=== PATIENT | female | born 1965 | race Caucasian/White ===

== ENCOUNTER 2016-05-02 19:39 | Emergency (ER) | payer OTHER ==
[~2016-05-02] VITALS: Ht 165.1 cm; Wt 71.1 kg
[~2016-05-02 19:39] MED LIST: IBUP-1105 PO; INTE0.3I2 SC; ONDA4TAB10 SL
[2016-05-02 19:47] VITALS: TEMP 36.7; Ht 165.1 cm; Wt 71.1 kg
[2016-05-02] MEDS ORDERED: HYDROmorphone INJ 1 MG/ML SYR IM STA (20:02)
[2016-05-02] MEDS ORDERED: ONDANSETRON 4MG OD TAB PO STA (20:02)
[2016-05-02] MEDS ORDERED: OXYC-609 PO (20:31)
--- NOTE | 2016-05-02 20:40 | EMERGENCY ROOM VISIT NOTE ---
ED Visit Note First contact with patient: 19:52 CHIEF COMPLAINT: Right knee pain HISTORY OF PRESENT ILLNESS: Patient is a 51-year-old white female who presents emergency department for evaluation of right knee pain. She is postop day #4 status post knee arthroscopy, debridement and lateral release performed by Dr. Child at [facility]. Patient states that she was doing well until today when her dog ran into her knee. She was wearing a knee immobilizer at that time. She complains of pain and swelling in the knee that she is unable to get controlled with her oral medications at home. She is on oxycodone chronically for chronic pain. She takes 15 mg every 4 hours for her chronic pain and was given additional oxycodone 5 mg tablets to take for breakthrough pain however only used her scheduled oxycodone 15 mg every 4 hours today. She states that she took an additional 5 mg about 4 hours ago. She iced and elevated the knee as well. She is using crutches. She rates her pain a 10/10. She states that it is radiating down her leg. REVIEW OF SYSTEMS: Review of systems as per HPI. All other systems reviewed were negative. At least 6 systems reviewed. PMH: Electronic medical records are reviewed and summarized as above/below. See Problem List. SOCIAL HISTORY: Patient lives at home. Former smoker. PHYSICAL EXAM: Vital Signs: Reviewed Nurse's notes. MENTAL STATUS: Alert, oriented, and cooperative. KNEE: Examination of the right knee show expected joint effusion and slight ecchymosis. Surgical incisions are well approximated with sutures, no drainage or discharge is present. The knee is slightly warm although not overly hot to the touch. She can extend fully, flexes roughly 20 before she has pain. Calves are soft and nontender. Distal pulses are easily palpable. EMERGENCY DEPARTMENT COURSE: The patient was seen and evaluated as above. Her old records are reviewed. She is on a No Narcotic Prescription policy through the emergency department as she is on chronic narcotics from pain management. X -rays of the right knee were obtained. Joint effusion was noted. No evidence for acute bony abnormality. She was given Zofran 4 mg ODT and Dilaudid 1 mg IM. She was advised that she would need to increase the amount of oxycodone that she is taking to cover for her postoperative knee pain. Continue all of her other postoperative instructions according to her surgeon. Patient was discharged home with her driving. 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 (2) Hypertension Status: Chronic (3) Multiple sclerosis Status: Chronic Surgical Problems: (1) History of cholecystectomy Status: Resolved (2) S/P partial hysterectomy Status: Resolved Current/Historical Medications Scheduled Estrogens, Conjugated (Premarin), 0.45 MG PO DAILY Interferon Beta-1B (Betaseron), 0.3 MG SC Q2D Lorazepam (Ativan), 1 MG PO HS Oxycodone HCl (Oxycodone HCl), 5 MG PO Q4H Oxycodone Hcl (Oxycodone Hcl), 15 MG PO QID Scheduled PRN Ibuprofen (Ibuprofen), 800 MG PO Q4H PRN for Headache or Pain Allergies Coded Allergies: Sulfa Antibiotics (Verified Allergy, Severe, upset stomach and itching, ) Tramadol (Verified Allergy, Severe, hives, 05/02/16) Gabapentin (Verified Allergy, Intermediate, UNKNOWN, 05/02/16) Hydrocodone (Verified Allergy, Intermediate, vomiting and rash, 05/02/16) Ketorolac Tromethamine (Verified Allergy, Intermediate, rash, vomiting, ) Aspirin (Verified Allergy, Unknown, 05/02/16) Baclofen (Unverified Allergy, Unknown, unknown, 05/02/16) Clonidine (Verified Allergy, Unknown, RASH,TACHYCARDIA, 05/02/16) Cyclobenzaprine (Unverified Allergy, Unknown, HIVES, 05/02/16) Diclofenac (Verified Allergy, Unknown, 05/02/16) Doxycycline (Verified Allergy, Unknown, ITCH,N/V, 05/02/16) Penicillamine (Verified Allergy, Unknown, RASH, 05/02/16) Pregabalin (Verified Allergy, Unknown, HIVES, 05/02/16) Sulfa Drugs (Verified Allergy, Unknown, HIVES, 05/02/16) Penicillins (Verified Adverse Reaction, Intermediate, N/V, 05/02/16) Prednisone (Verified Adverse Reaction, Unknown, tachycardia, 05/02/16) Vital Signs Date Time Temp Pulse Resp B/P Pulse Ox O2 Delivery O2 Flow Rate FiO2 05/02/16 19:47 36.7 103 18 159/116 96 Room Air Medications Administered Medications (Trade) Dose Ordered Sig/Ran Route Start Time Stop Time Status Last Admin Dose Admin Hydromorphone HCl (Dilaudid Inj) 1 mg NOW STAT IM 05/02/16 20:02 05/02/16 20:03 DC 05/02/16 20:15 1 MG Ondansetron HCl (Zofran Odt) 4 mg NOW STAT PO 05/02/16 20:02 05/02/16 20:03 DC 05/02/16 20:15 4 MG Departure Information Impression Primary Impression: Right knee pain Additional Impression: Post-operative pain Referrals Gildardo Olmos M.D. (PCP) Patient Instructions My [facility] Additional Instructions DO NOT drive, drink alcohol, operate machinery, or perform dangerous activities today. You were given medications in the ER that can affect your ability to safely function or operate a vehicle. Use your oxycodone as prescribed for pain. Follow all of your other post-operative instructions according to Dr. Child. Follow up with orthopedics as your have scheduled. Continue physical therapy. Problem Qualifiers Primary Impression: Right knee pain Chronicity: acute Qualified Codes: M25.561 - Pain in right knee
--- NOTE | 2016-05-02 20:42 | DIAGNOSTIC IMAGING REPORT ---
RIGHT KNEE 1 OR 2 VIEWS ROUTINE CLINICAL HISTORY: Right knee pain following injury. Recent scope. COMPARISON: Right knee radiographs December 17, 2015. FINDINGS: Alignment of the right knee is anatomic. There is no acute fracture or suspicious lesion. There is a small amount of soft tissue gas medial to the right knee. There is no definite joint effusion. Joint spaces are preserved. There may be mild irregularity of the patella which is chronic. IMPRESSION: 1. No osseous abnormality of the right knee. 2. Small amount of soft tissue gas which could be correlated with recent surgical history. Electronically signed by: Emanuel Morgan M.D. 05/02/2016 8:40 PM Dictated Date/Time: 05/02/2016 8:38 PM
[2016-05-02 20:51] VITALS: BP 131/100; PULSE 78; O2SAT 97
[2016-05-18] MEDS ORDERED: PRM/45 PO (07:03)
[2016-05-18] MEDS ORDERED: ATV/1 PO (10:50)
[2016-05-18] MEDS ORDERED: ONDA4TAB46 PO (13:13)
== END 2016-05-02 20:55 | disposition home or self-care (01) ==
LOC: C.EDB 19:40 → C.EDD 20:55
DX: G89.18 Other acute postprocedural pain (principal); M25.561 Pain in right knee; I10 Essential (primary) hypertension; G35 Multiple sclerosis; F95.2 Tourette's disorder; Z90.710 Acquired absence of both cervix and uterus; Z90.49 Acquired absence of other specified parts of digestive tract; Z87.891 Personal history of nicotine dependence; Z88.0 Allergy status to penicillin; Z88.2 Allergy status to sulfonamides; Z88.5 Allergy status to narcotic agent; Z88.6 Allergy status to analgesic agent; Z88.8 Allergy status to other drugs, medicaments and biological substances

== ENCOUNTER 2016-05-07 12:34 | Emergency (ER) | payer OTHER ==
[~2016-05-07] VITALS: Ht 165.1 cm; Wt 70.3 kg
[~2016-05-07 12:34] MED LIST changes: -ONDA4TAB10 SL; +OXYC-609 PO
[2016-05-07 12:39] VITALS: TEMP 36.6; Ht 165.1 cm; Wt 70.3 kg
[2016-05-07] MEDS ORDERED: OXYCODONE HCL IR 5 MG TAB (IMMEDIATE RELEASE) PO STA (13:25)
--- NOTE | 2016-05-07 13:39 | EMERGENCY ROOM VISIT NOTE ---
ED Visit Note First contact with patient: 13:12 Chief Complaint: RIGHT Knee Pain and Pressure, Post Op History of Present Illness: Patient is a 51 year old female who presents to the emergency room today for evaluation of her ongoing RIGHT knee pain and pressure. She reports that she had arthroscopic lateral compartment release performed on the by Dr. Child. She was initially prescribed a large amount of pain medication to be used in addition to her chronic pills. She's gone through the entire course of her prescription and second her to ongoing discomfort. She was seen at her orthopedist office who declined further prescription of this time. She was directed to the emergency department for continued management. The patient rates her current discomfort as an 8/10. She denies numbness or tingling into the distal started. She denies any redness or swelling, fevers, chills, nausea, or vomiting. Medications: Reviewed and discussed with the patient. Allergies: Multiple allergies listed above. PMH: No pertinent past medical history. SHx: Patient is a 51-year-old female who lives with family. ROS: All pertinent positive and negative review of systems are appropriately documented in the History of Present Illness. Physical Exam: VITAL SIGNS - Vital signs and nursing notes were reviewed. GENERAL - 51-year-old female appearing her stated age and in noticeable discomfort throughout the exam. MUSCULOSKELETAL - RIGHT knee with well healing surgical trocar sites noted. Mild edema. No erythema or warmth to touch. Mild decreased range of motion in flexion. +5/5 strength appreciated bilaterally. NEUROLOGIC/VASCULAR - Neurovascularly intact distally with +3/5 dorsalis pedis pulses palpated bilaterally. Normal sensation to light and sharp touch appreciated distally. ED Course: Patient was seen and evaluated by myself. Previous emergency department visit notes were reviewed. I had a lengthy discussion with the patient regarding her ongoing symptoms and management this point. Her exam is otherwise unremarkable. She has no fever. She has no concerning signs for infection at this point. She was seen in this facility recently for similar symptoms. I did review the [place] drug monitoring site with the patient directly and explained that I would not be providing her any further narcotic pain medications. She requested an injection for pain which I appropriately and abruptly declined. She was provided a one-time dose of Percocet in the emergency department and informed that no further narcotic prescription medications will be provided for this complaint. She was encouraged to follow- up with her pain management provider as well as her orthopedist from today's visit. She was educated on worrisome symptoms for return visit to the emergency department. Patient discharged home in good condition. In the evaluation and treatment of this patient, the following differential diagnoses were considered: Patellar Fracture, Tibial Plateau Fracture, Distal Femur Fracture, ACL Injury, PCL Injury, Collateral Ligament Injury, Pes Anserine Bursitis, Maisonneuve Fracture. Impression: RIGHT Knee Pain Discharge Instructions: You have been treated in the Emergency Department for Knee Pain. You have received pain medicine in the emergency department which impairs your ability to operate a vehicle. It is illegal for you to drive after receiving these medicines. For pain control, you can use the following fhkz-wyr-lsaczov medicines (if >12 yo): - Regular strength (325mg/tab) Tylenol (acetaminophen) 2 tabs every 4-6 hours as needed. Do not exceed 12 tablets in a 24 hour period. Avoid taking more than 4 grams (4000 mg) of Tylenol per day. This includes any other sources of acetaminophen you may take on a regular basis. - Regular strength (200 mg/tab) Advil (ibuprofen) 1-2 tabs every 4-6 hours as needed. Do not exceed a dose of 3200 mg per day. If this is a recent injury (<24 hrs), ice can be applied to the area of pain for the first 3 days to help decrease pain and inflammation. Ice massages can be performed by freezing water in a paper cup, peeling back the cup to expose the ice and then massaging over the affected area. Continue to followup with your orthopedic surgeon from today's surgery. Return to the Emergency Department if your current symptoms worsen despite treatment course outlined above. 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 (2) Hypertension Status: Chronic (3) Multiple sclerosis Status: Chronic Surgical Problems: (1) History of cholecystectomy Status: Resolved (2) S/P partial hysterectomy Status: Resolved Current/Historical Medications Scheduled Estrogens, Conjugated (Premarin), 0.45 MG PO DAILY Interferon Beta-1B (Betaseron), 0.3 MG SC Q2D Lorazepam (Ativan), 1 MG PO HS Oxycodone Hcl (Oxycodone Hcl), 15 MG PO QID Scheduled PRN Ibuprofen (Ibuprofen), 800 MG PO Q4H PRN for Headache or Pain Ondansetron Hcl (Zofran), 4 MG PO PRN PRN for Nausea Allergies Coded Allergies: Sulfa Antibiotics (Verified Allergy, Severe, upset stomach and itching, ) Tramadol (Verified Allergy, Severe, hives, 05/02/16) Gabapentin (Verified Allergy, Intermediate, UNKNOWN, 05/02/16) Hydrocodone (Verified Allergy, Intermediate, vomiting and rash, 05/02/16) Ketorolac Tromethamine (Verified Allergy, Intermediate, rash, vomiting, ) Aspirin (Verified Allergy, Unknown, 05/02/16) Baclofen (Unverified Allergy, Unknown, unknown, 05/02/16) Clonidine (Verified Allergy, Unknown, RASH,TACHYCARDIA, 05/02/16) Cyclobenzaprine (Unverified Allergy, Unknown, HIVES, 05/02/16) Diclofenac (Verified Allergy, Unknown, 05/02/16) Doxycycline (Verified Allergy, Unknown, ITCH,N/V, 05/02/16) Penicillamine (Verified Allergy, Unknown, RASH, 05/02/16) Pregabalin (Verified Allergy, Unknown, HIVES, 05/02/16) Sulfa Drugs (Verified Allergy, Unknown, HIVES, 05/02/16) Penicillins (Verified Adverse Reaction, Intermediate, N/V, 05/02/16) Prednisone (Verified Adverse Reaction, Unknown, tachycardia, 05/02/16) Vital Signs Date Time Temp Pulse Resp B/P Pulse Ox O2 Delivery O2 Flow Rate FiO2 05/07/16 13:52 102 20 126/70 98 05/07/16 12:39 36.6 115 20 137/74 98 Room Air Medications Administered Medications (Trade) Dose Ordered Sig/Ran Route Start Time Stop Time Status Last Admin Dose Admin Oxycodone HCl (Roxicodone Immediate Rel Tab) 5 mg NOW STAT PO 05/07/16 13:25 05/07/16 13:26 DC 05/07/16 13:30 5 MG Departure Information Impression Primary Impression: Knee pain Dispostion Home / Self-Care Condition GOOD Referrals Gildardo Olmos M.D. (PCP) Patient Instructions My [facility] Additional Instructions You have been treated in the Emergency Department for Knee Pain. You have received pain medicine in the emergency department which impairs your ability to operate a vehicle. It is illegal for you to drive after receiving these medicines. For pain control, you can use the following aalw-uzk-wuyxngt medicines (if >12 yo): - Regular strength (325mg/tab) Tylenol (acetaminophen) 2 tabs every 4-6 hours as needed. Do not exceed 12 tablets in a 24 hour period. Avoid taking more than 4 grams (4000 mg) of Tylenol per day. This includes any other sources of acetaminophen you may take on a regular basis. - Regular strength (200 mg/tab) Advil (ibuprofen) 1-2 tabs every 4-6 hours as needed. Do not exceed a dose of 3200 mg per day. If this is a recent injury (<24 hrs), ice can be applied to the area of pain for the first 3 days to help decrease pain and inflammation. Ice massages can be performed by freezing water in a paper cup, peeling back the cup to expose the ice and then massaging over the affected area. Continue to followup with your orthopedic surgeon from today's surgery. Return to the Emergency Department if your current symptoms worsen despite treatment course outlined above. Problem Qualifiers Primary Impression: Knee pain Laterality: right Chronicity: unspecified Qualified Codes: M25.561 - Pain in right knee
[2016-05-07 13:52] VITALS: BP 126/70; PULSE 102; O2SAT 98
[2016-05-18] MEDS ORDERED: PRM/45 PO (07:03)
[2016-05-18] MEDS ORDERED: ATV/1 PO (10:50)
[2016-05-18] MEDS ORDERED: ONDA4TAB46 PO (13:13)
== END 2016-05-07 13:54 | disposition home or self-care (01) ==
LOC: C.EDB 12:35 → C.EDD 13:54
DX: M25.561 Pain in right knee (principal); F95.2 Tourette's disorder; I10 Essential (primary) hypertension; G35 Multiple sclerosis; Z90.711 Acquired absence of uterus with remaining cervical stump

== ENCOUNTER 2016-05-18 16:17 | Emergency (ER) | payer OTHER ==
[~2016-05-18] VITALS: Ht 165.1 cm; Wt 72.9 kg
[~2016-05-18 16:17] MED LIST changes: +ATV/1 PO; +ONDA4TAB46 PO; -OXYC-609 PO; +PRM/45 PO
[2016-05-18 16:29] VITALS: TEMP 36.8; Ht 165.1 cm; Wt 72.9 kg
[2016-05-18] MEDS ORDERED: DIPHTHERIA/TETANUS/PERTUSSIS 0.5 ML SYR/VIAL IM. ONE (16:45)
[2016-05-18] MEDS ORDERED: XYLOCAINE 1%/SOD BICARB 20 ML VIAL INFIL ONE (16:45)
[2016-05-18 17:07] VITALS: BP 162/92; PULSE 65; O2SAT 98
[2016-05-18] MEDS ORDERED: OXY/15 PO (20:31)
--- NOTE | 2016-05-18 21:03 | EMERGENCY ROOM VISIT NOTE ---
ED Visit Note First contact with patient: 16:37 Chief Complaint: I cut my left wrist. History of Present Illness: Ms. Heart is a 51-year-old white female who ambulates into the ED complaining of laceration left ulnar styloid process. Patient reports approximately 2.5 hours ago she was pushing trash into a basket and accidentally cut her left wrist on a pineapple can lid. She reports he cleansed the wound with soap and water and control bleeding. Currently she is complaining of a stinging pain in the area of her laceration . Her pain is nonradiating. Her pain worsens with palpation. She has not identified any alleviating factors related to the pain. She has not taken any medications for pain prior to arrival at the hospital. She denies any associated symptoms including hand/finger weakness/numbness/tingling. Review of Systems: As noted above in history of present illness. Past Medical History: (1) Trey de la Tourette's syndrome (2) Hypertension (3) Multiple sclerosis Surgical Problems: (1) History of cholecystectomy (2) S/P partial hysterectomy Current Medications: Medications Dose Route/Sig Max Daily Dose Days Date Category Zofran (Ondansetron HCl) 4 Mg Tab 4 Mg PO PRN PRN 05/07/16 Reported Oxycodone Hcl 15 Mg Tab 15 Mg PO QID 05/02/16 Reported Ibuprofen 200 Mg Tab 800 Mg PO Q4H PRN 08/23/15 Reported Ativan (Lorazepam) 1 Mg Tab 1 Mg PO HS 05/11/15 Reported Betaseron (Interferon Beta-1B) 0.3 Mg Inj 0.3 Mg SC Q2D 10/17/12 Reported Premarin (Estrogens, Conjugated) 0.45 Mg Tab 0.45 Mg PO DAILY 03/15/12 Reported Allergies to Medications: Aspirin, baclofen, clonidine, cyclobenzaprine, diclofenac, doxycycline, gabapentin, hydrocodone, penicillin, prednisone, gabapentin, tramadol, sulfa, ketorolac. Social History: Patient is not employed, she is on disability; she feels safe in her home environment; she denies tobacco use. Tetanus Immunization Status: Physical Examination: Vital Signs: Date Time Temp Pulse Resp B/P Pulse Ox O2 Delivery O2 Flow Rate FiO2 05/18/16 17:07 65 16 162/92 98 Room Air 05/18/16 16:29 36.8 78 17 168/98 96 Room Air GENERAL: 51-year-old female in mild distress due to pain, nontoxic-appearing, afebrile and hemodynamically stable. NEUROLOGICAL: Awake, alert and oriented to person, place and time. Answering questions appropriately and following commands. SKIN: Warm, dry and pink. Left Wrist: 1.7 cm full-thickness laceration over the ulnar styloid process. No active bleeding. LEFT UPPER EXTREMITY: No gross bony deformity. Mild tenderness in the inferior laceration. No active full range of motion in flexion and extension and radial and ulnar deviation of the wrist, flexion and extension of the fourth and fifth MCP, PIP and DIP joints. Throughout the hand skin was warm and pink and capillary refill is brisk. She is able to distinguish light sensations through all dermatomes. ED Course: Patient is assessed as noted above. Wound Repair: Complexity: Basic Verbal consent was obtained after the risks and benefits were explained. The skin was prepped with betadine and a sterile field set. Wound edges of the wound was anesthetized with 2.2 ml buffered 1% lidocaine. The wound was explored for foreign bodies and none found. Copious irrigation was performed using sterile saline. With direct pressure the bleeding subsided. Debridement was not performed. The wound edges were approximated using 5-0 Ethilon with 3 simple interrupted sutures. Hemostasis and excellent approximation was achieved. Antibacterial ointment and a sterile dressing applied. No complications and the patient tolerated the procedure well. Patient was educated about tonight's findings and instructed on her treatment plan; she verbalizes understanding and agreement with this plan. Clinical Impression: Laceration of the left wrist. Disposition: Patient discharged home in stable condition; prior to departure she was reassessed and subjectively reported she was pain-free. Plan: Comfort measures, wound care, and signs of infection were discussed with the patient. Patient was encouraged to follow-up with PCP or return to the ED for signs of infection and her suture removal in 10-12 days.
== END 2016-05-18 17:15 | disposition home or self-care (01) ==
LOC: C.EDB 16:18 → C.EDD 17:15
DX: S61.512A Laceration without foreign body of left wrist, initial encounter (principal); W26.8XXA Contact with other sharp object(s), not elsewhere classified, initial encounter; F95.2 Tourette's disorder; I10 Essential (primary) hypertension; G35 Multiple sclerosis; Z79.899 Other long term (current) drug therapy

== ENCOUNTER 2016-05-27 19:08 | Emergency (ER) | payer OTHER ==
[~2016-05-27] VITALS: Ht 165.1 cm; Wt 72.9 kg
[~2016-05-27 19:08] MED LIST changes: +OXY/15 PO
[2016-05-27 19:10] VITALS: TEMP 36.9; Ht 165.1 cm; Wt 72.9 kg
--- NOTE | 2016-05-27 19:25 | EMERGENCY ROOM VISIT NOTE ---
ED Visit Note First contact with patient: 19:20 CHIEF COMPLAINT: Suture removal HISTORY OF PRESENT ILLNESS: This 51-year-old female patient returns to the ED today for removal of sutures that were placed 9 days ago. There has been no swelling, redness, or drainage from the wound. The patient feels like the laceration is healing well. REVIEW OF SYSTEMS: A 6 system review of systems was completed with positives and pertinent negatives listed in the HPI. PMH: Unchanged from previous visit. ALLERGIES: See nursing notes PHYSICAL EXAM: Vital Signs: Reviewed Nurse's notes, vital signs stable. GENERAL : This is a 51-year-old female, in no acute distress. SKIN: There is a sutured wound on the left wrist with no signs of infection. There is no erythema, swelling, or tenderness. EMERGENCY DEPARTMENT COURSE: 3 sutures were removed without any difficulty and there was no separation of the wound edges. The patient was discharged home in good condition. DIAGNOSIS: Healing laceration and suture removal DISCHARGE INSTRUCTIONS AND TREATMENT: Wash any remaining crusts off of the wound today and resume your normal activities. 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 (2) Hypertension Status: Chronic (3) Multiple sclerosis Status: Chronic Surgical Problems: (1) History of cholecystectomy Status: Resolved (2) S/P partial hysterectomy Status: Resolved Current/Historical Medications Scheduled Estrogens, Conjugated (Premarin), 0.45 MG PO DAILY Interferon Beta-1B (Betaseron), 0.3 MG SC Q2D Lorazepam (Ativan), 1 MG PO HS Oxycodone Hcl (Oxycodone Hcl), 15 MG PO QID Scheduled PRN Ibuprofen (Ibuprofen), 800 MG PO Q4H PRN for Headache or Pain Ondansetron Hcl (Zofran), 4 MG PO PRN PRN for Nausea Allergies Coded Allergies: Sulfa Antibiotics (Verified Allergy, Severe, upset stomach and itching, ) Tramadol (Verified Allergy, Severe, hives, 05/02/16) Gabapentin (Verified Allergy, Intermediate, UNKNOWN, 05/02/16) Hydrocodone (Verified Allergy, Intermediate, vomiting and rash, 05/02/16) Ketorolac Tromethamine (Verified Allergy, Intermediate, rash, vomiting, ) Aspirin (Verified Allergy, Unknown, 05/02/16) Baclofen (Unverified Allergy, Unknown, unknown, 05/02/16) Clonidine (Verified Allergy, Unknown, RASH,TACHYCARDIA, 05/02/16) Cyclobenzaprine (Unverified Allergy, Unknown, HIVES, 05/02/16) Diclofenac (Verified Allergy, Unknown, 05/02/16) Doxycycline (Verified Allergy, Unknown, ITCH,N/V, 05/02/16) Penicillamine (Verified Allergy, Unknown, RASH, 05/02/16) Pregabalin (Verified Allergy, Unknown, HIVES, 05/02/16) Sulfa Drugs (Verified Allergy, Unknown, HIVES, 05/02/16) Penicillins (Verified Adverse Reaction, Intermediate, N/V, 05/02/16) Prednisone (Verified Adverse Reaction, Unknown, tachycardia, 05/02/16) Vital Signs Date Time Temp Pulse Resp B/P Pulse Ox O2 Delivery O2 Flow Rate FiO2 05/27/16 19:33 80 18 96 05/27/16 19:10 36.9 80 18 173/86 96 Room Air Departure Information Impression Primary Impression: Encounter for removal of sutures Dispostion Home / Self-Care Condition GOOD Referrals Gildardo Olmos M.D. (PCP) Patient Instructions My [facility] Additional Instructions Wash any remaining crusts off of the wound today and resume your normal activities.
[2016-05-27 19:33] VITALS: BP 173/86; PULSE 80; O2SAT 96
== END 2016-05-27 19:35 | disposition home or self-care (01) ==
LOC: C.EDB 19:09 → C.EDD 19:35
DX: Z48.02 Encounter for removal of sutures (principal)

== ENCOUNTER → 2016-09-24 | Outpatient (CLI) | payer OTHER ==
[~2016-09-24] MED LIST changes: +GADAVIST IV PRN
--- NOTE | 2016-09-24 10:12 | DIAGNOSTIC IMAGING REPORT ---
Brain MRI WITH AND WITHOUT CONTRAST HISTORY: Multiple sclerosis G35 Multiple [id number] TECHNIQUE: Multiplanar multisequence MRI of the brain was performed both before and after the intravenous administration of contrast. COMPARISON STUDY: 09/05/2015 FINDINGS: Stable exam. Multiple foci of demyelination within the periventricular deep white matter regions considered stable. There are no new or interval findings. There is no evidence for abnormal postcontrast enhancement. Diffusion-weighted images are negative for an acute ischemic insult. IMPRESSION: 1. Findings of stable multiple sclerosis/demyelinating disorder. 2. No evidence for new, interval, or progressive lesion. Electronically signed by: Ramakrishna Munson M.D. 09/24/2016 10:11 AM Dictated Date/Time: 09/24/2016 10:05 AM
== END | disposition home or self-care (01) ==
LOC: C.MRI 09:12
PROVIDERS: ATTEND Physician Assistant
DX: G35 Multiple sclerosis (principal)

== ENCOUNTER 2016-11-23 11:29 | Emergency (ER) | payer OTHER ==
[~2016-11-23] VITALS: Ht 165.1 cm; Wt 67.6 kg
[~2016-11-23 11:29] MED LIST changes: -GADAVIST IV PRN
[2016-11-23 11:32] VITALS: TEMP 36.6; Ht 165.1 cm; Wt 67.6 kg
[2016-11-23] MEDS ORDERED: SODIUM CHLORIDE 0.9% 500ML 500 ML IV STA (12:21)
[2016-11-23] MEDS ORDERED: ONDANSETRON INJ 2 MG/ML 2 ML VIAL IV STA (12:21)
[2016-11-23 12:24] LABS: HEMATOCRIT 40.8 % (37-47); MEAN CELL VOLUME 87.7 fL (80-100); MEAN CORPUSCULAR HGB CONC 33.1 g/dl (32-36); PLATELET COUNT 362 K/uL (130-400); RED BLOOD COUNT 4.65 M/uL (4.2-5.4); WHITE BLOOD COUNT 10.59 K/uL (4.8-10.8)
[2016-11-23] MEDS ORDERED: OPTIRAY 320 IV PRN (12:30)
[2016-11-23 12:31] LABS: BUN/CREATININE RATIO 29.2 (10-20); CALCIUM 9.6 mg/dl (8.5-10.1); CREATININE 0.72 mg/dl (0.60-1.20); POTASSIUM 3.8 mmol/L (3.5-5.1)
[2016-11-23 12:35] LABS: ALB/GLOB RATIO 0.9 (0.9-2); CKMB/CK RATIO 1.3 (0-3.0)
[2016-11-23 12:40] LABS: INR 0.9 (0.9-1.1); PROTHROMBIN TIME (PATIENT) 10.1 SECONDS (9.0-12.0)
--- NOTE | 2016-11-23 12:46 | DIAGNOSTIC IMAGING REPORT ---
CHEST ONE VIEW PORTABLE CLINICAL HISTORY: cp dyspnea COMPARISON STUDY: 02/07/2015 FINDINGS: The bones soft tissues and hemidiaphragms are normal. The cardiomediastinal silhouette is normal. The lungs are clear. The pulmonary vasculature is normal. IMPRESSION: Negative chest. The above report was generated using voice recognition software. It may contain grammatical, syntax or spelling errors. Electronically signed by: Ramakrishna Munson M.D. 11/23/2016 12:44 PM Dictated Date/Time: 11/23/2016 12:43 PM
[2016-11-23 13:11] LABS: ALKALINE PHOSPHATASE 85 U/L (45-117); ALT/SGPT 14 U/L (12-78); AST/SGOT 13 U/L (15-37)
[2016-11-23 13:32] LABS: URINE APPEARANCE CLEAR (CLEAR); URINE BILIRUBIN NEG (NEG); URINE COLOR YELLOW; URINE EPITHELIAL CELL AUTO >30 /lpf (0-5); URINE NITRITE NEG (NEG); URINE PH 5.5 (4.5-7.5); URINE SPECIFIC GRAVITY 1.029 (1.000-1.030); UROBILINOGEN NEG (NEG); ZZUR CULT IF INDIC CLEAN CATCH NO
--- NOTE | 2016-11-23 13:32 | DIAGNOSTIC IMAGING REPORT ---
ABD/PELVIS IV CONTRAST ONLY CT DOSE: 496.23 mGycm HISTORY: Pain epigastric abd pain TECHNIQUE: Multiaxial CT images of the abdomen and pelvis were performed following the use of intravenous contrast. A dose lowering technique was utilized adhering to the principles of ALARA. COMPARISON STUDY: 01/25/2015 FINDINGS: Lung bases are clear. Liver is uniform. Prior cholecystectomy. Biliary ductal prominence unchanged from the prior study. This presumably is postoperative. Spleen is uniform. Small right renal cortical cyst unchanged. No evidence for renal hydronephrosis. Nonobstructive bowel pattern. Slight hyperemia of several loops of small bowel suggesting a mild enteritis. Several small scattered colonic diverticuli. No evidence for diverticulitis. Bladder is midline. Inguinal regions are unremarkable. IMPRESSION: 1. Findings suggesting a mild nonspecific enteritis. 2. No evidence for abscess collection or obstruction. 3. Prior cholecystectomy The above report was generated using voice recognition software. It may contain grammatical, syntax or spelling errors. Electronically signed by: Ramakrishna Munson M.D. 11/23/2016 1:31 PM Dictated Date/Time: 11/23/2016 1:25 PM
[2016-11-23 13:37] LABS: MANUAL MICROSCOPIC REQUIRED? NO; REVIEW REQ? NO
[2016-11-23 15:31] VITALS: BP 122/70; PULSE 72; O2SAT 97
--- NOTE | 2016-11-23 18:59 | EMERGENCY ROOM VISIT NOTE ---
History Report prepared by Jonatan: Rayshawn Patrick Under the Supervision of: Dr. Gabriele Harley D.O. First contact with patient: 11:59 Chief Complaint: CHEST PAIN Stated Complaint: BACK AND CHEST PAINS-R/O HEART ATTACK Nursing Triage Summary: pt has had epigastric pain since wednesday" thought I had a kidney infection because it goes to my back" pt seen at [facility] on sat, ekg done told to come here, but didn't want to come alone. sitting up makes discomfort better. History of Present Illness The patient is a 51 year old female who presents to the Emergency Room with complaints of lower back pain that began 6 days ago. She rates her pain a 7/10 in severity. At this time, she began to experience epigastric abdominal pain that radiated into her lower back. She states that currently, she does not have any epigastric abdominal pain, she just has back pain in her bilateral lower back. Her back pain is exacerbated with lying flat and improved with sitting up. Breathing does not change her symptoms. Two days ago, she saw her PCP and received an ECG that showed some abnormalities or which she was referred in. She denies any chest pain, shortness of breath, fever, cough, rhinorrhea, calf swelling, diarrhea, recent travel, recent surgeries, hemoptysis, estrogen use or previous blood clots. She is currently nauseated. She denies any history of hypertension, diabetes, CAD or hyperlipidemia. She has a history of MS, Teretes , and a cholecystectomy. She denies at any point having chest pain, shortness of breath or arm/jaw pain. Source of History: patient Onset: 6 days ago Position: back (lower) Symptom Intensity: 7/10 Quality: ache Timing: constant Modifying Factors (Worsening): rest (lying flat) Modifying Factors (Relieving): rest (sitting up) Associated Symptoms: + nausea, No fevers, No cough, No chest pain, No SOB, No abdominal pain, No diarrhea Review of Systems See HPI for pertinent positives & negatives. A total of 10 systems reviewed and were otherwise negative. Past Medical & Surgical Medical Problems: (1) Trey de la Tourette's syndrome (2) Hypertension (3) Multiple sclerosis Surgical Problems: (1) History of cholecystectomy (2) S/P partial hysterectomy Family History Diabetes mellitus Hypertension Social History Smoking Status: Current Every Day Smoker Alcohol Use: none Drug Use: none Marital Status: Housing Status: lives with family Occupation Status: unemployed Current/Historical Medications Scheduled Estrogens, Conjugated (Premarin), 0.45 MG PO DAILY Interferon Beta-1B (Betaseron), 0.3 MG SC Q2D Lorazepam (Ativan), 1 MG PO HS Oxycodone Hcl (Oxycodone Hcl), 15 MG PO QID Scheduled PRN Ibuprofen (Ibuprofen), 800 MG PO Q4H PRN for Headache or Pain Allergies Coded Allergies: Sulfa Antibiotics (Verified Allergy, Severe, upset stomach and itching, ) Tramadol (Verified Allergy, Severe, hives, 11/23/16) Gabapentin (Verified Allergy, Intermediate, UNKNOWN, 11/23/16) Hydrocodone (Verified Allergy, Intermediate, vomiting and rash, 11/23/16) Ketorolac Tromethamine (Verified Allergy, Intermediate, rash, vomiting, ) Aspirin (Verified Allergy, Unknown, 11/23/16) Baclofen (Unverified Allergy, Unknown, unknown, 11/23/16) Clonidine (Verified Allergy, Unknown, RASH,TACHYCARDIA, 11/23/16) Cyclobenzaprine (Unverified Allergy, Unknown, HIVES, 11/23/16) Diclofenac (Verified Allergy, Unknown, 11/23/16) Doxycycline (Verified Allergy, Unknown, ITCH,N/V, 11/23/16) Penicillamine (Verified Allergy, Unknown, RASH, 11/23/16) Pregabalin (Verified Allergy, Unknown, HIVES, 11/23/16) Sulfa Drugs (Verified Allergy, Unknown, HIVES, 11/23/16) Penicillins (Verified Adverse Reaction, Intermediate, N/V, 11/23/16) Prednisone (Verified Adverse Reaction, Unknown, tachycardia, 11/23/16) Physical Exam Vital Signs Date Time Temp Pulse Resp B/P (MAP) Pulse Ox O2 Delivery O2 Flow Rate FiO2 11/23/16 15:31 72 18 122/70 97 11/23/16 14:35 18 125/94 99 11/23/16 12:43 80 17 137/79 98 11/23/16 12:00 83 11/23/16 11:56 96 Room Air 11/23/16 11:40 Room Air 11/23/16 11:32 36.6 101 20 150/86 96 Room Air Physical Exam GENERAL: alert, disheveled appearing, well nourished, no distress, non-toxic, sitting up in bed EYE EXAM: normal conjunctiva OROPHARYNX: no exudate, no erythema, lips, buccal mucosa, and tongue normal and mucous membranes are moist NECK: supple, no nuchal rigidity, no adenopathy, non-tender LUNGS: Clear to auscultation. Normal chest wall mechanics HEART: no murmurs, S1 normal and S2 normal ABDOMEN: abdomen soft, minimal epigastric tenderness, normo-active bowel sounds , no masses, no rebound or guarding. BACK: Acute reproducible tenderness in the bilateral lumbar paraspinal area. SKIN: no rashes and no bruising UPPER EXTREMITIES: upper extremities are grossly normal. LOWER EXTREMITIES: No pitting edema. NEURO EXAM: Normal sensorium, cranial nerves II-XII grossly intact, normal speech, no gross weakness of arms, no gross weakness of legs. Medical Decision & Procedures ER Provider Diagnostic Interpretation: Radiology results as stated below per my review and the radiologist's interpretation: CHEST ONE VIEW PORTABLE CLINICAL HISTORY: cp dyspnea COMPARISON STUDY: 02/07/2015 FINDINGS: The bones soft tissues and hemidiaphragms are normal. The cardiomediastinal silhouette is normal. The lungs are clear. The pulmonary vasculature is normal. IMPRESSION: Negative chest. The above report was generated using voice recognition software. It may contain grammatical, syntax or spelling errors. Electronically signed by: Ramakrishna Munson M.D. 11/23/2016 12:44 PM Dictated Date/Time: 11/23/2016 12:43 PM ABD/PELVIS IV CONTRAST ONLY CT DOSE: 496.23 mGycm HISTORY: Pain epigastric abd pain TECHNIQUE: Multiaxial CT images of the abdomen and pelvis were performed following the use of intravenous contrast. A dose lowering technique was utilized adhering to the principles of ALARA. COMPARISON STUDY: 01/25/2015 FINDINGS: Lung bases are clear. Liver is uniform. Prior cholecystectomy. Biliary ductal prominence unchanged from the prior study. This presumably is postoperative. Spleen is uniform. Small right renal cortical cyst unchanged. No evidence for renal hydronephrosis. Nonobstructive bowel pattern. Slight hyperemia of several loops of small bowel suggesting a mild enteritis. Several small scattered colonic diverticuli. No evidence for diverticulitis. Bladder is midline. Inguinal regions are unremarkable. IMPRESSION: 1. Findings suggesting a mild nonspecific enteritis. 2. No evidence for abscess collection or obstruction. 3. Prior cholecystectomy The above report was generated using voice recognition software. It may contain grammatical, syntax or spelling errors. Electronically signed by: Ramakrishna Munson M.D. 11/23/2016 1:31 PM Dictated Date/Time: 11/23/2016 1:25 PM Laboratory Results 11/23/16 11:50 11/23/16 11:50 Test 11/23/16 11:50 11/23/16 11:55 11/23/16 12:18 11/23/16 12:50 Red Blood Count 4.65 M/uL (4.2-5.4) Mean Corpuscular Volume 87.7 fL (80-100) Mean Corpuscular Hemoglobin 29.0 pg (25-34) Mean Corpuscular Hemoglobin Concent 33.1 g/dl (32-36) RDW Standard Deviation 41.8 fL (36.4-46.3) RDW Coefficient of Variation 13.1 % (11.5-14.5) Mean Platelet Volume 10.0 fL (7.4-10.4) Prothrombin Time 10.1 SECONDS (9.0-12.0) Prothromb Time International Ratio 0.9 (0.9-1.1) Activated Partial Thromboplast Time 25.8 SECONDS (21.0-31.0) Partial Thromboplastin Ratio 1.0 Anion Gap 8.0 mmol/L (3-11) Est Creatinine Clear Calc Drug Dose 81.3 ml/min Estimated GFR () 110.8 Estimated GFR (Non- 95.6 BUN/Creatinine Ratio 29.2 (10-20) Calcium Level 9.6 mg/dl (8.5-10.1) Total Creatine Kinase 54 U/L (26-192) Creatine Kinase MB 0.7 ng/ml (0.5-3.6) Creatine Kinase MB Ratio 1.3 (0-3.0) Globulin 4.3 gm/dl (2.5-4.0) Albumin/Globulin Ratio 0.9 (0.9-2) Bedside Troponin I < 0.030 ng/ml (0-0.045) Total Bilirubin 0.2 mg/dl (0.2-1) Direct Bilirubin < 0.1 mg/dl (0-0.2) Aspartate Amino Transf (AST/SGOT) 13 U/L (15-37) Alanine Aminotransferase (ALT/SGPT) 14 U/L (12-78) Alkaline Phosphatase 85 U/L (45-117) Troponin I < 0.015 ng/ml (0-0.045) Total Protein 8.0 gm/dl (6.4-8.2) Albumin 3.6 gm/dl (3.4-5.0) Urine Color YELLOW Urine Appearance CLEAR (CLEAR) Urine pH 5.5 (4.5-7.5) Urine Specific [place] 1.029 (1.000-1.030) Urine Protein NEG (NEG) Urine Glucose (UA) NEG (NEG) Urine Ketones NEG (NEG) Urine Occult Blood NEG (NEG) Urine Nitrite NEG (NEG) Urine Bilirubin NEG (NEG) Urine Urobilinogen NEG (NEG) Urine Leukocyte Esterase NEG (NEG) Urine WBC (Auto) 1-5 /hpf (0-5) Urine RBC (Auto) 5-10 /hpf (0-4) Urine Hyaline Casts (Auto) 1-5 /lpf (0-5) Urine Epithelial Cells (Auto) >30 /lpf (0-5) Urine Bacteria (Auto) NEG (NEG) Test 11/23/16 12:58 Lactic Acid Level 0.6 mmol/L (0.4-2.0) Laboratory results per my review. Medications Administered Medications (Trade) Dose Ordered Sig/Ran Route Start Time Stop Time Status Last Admin Dose Admin Sodium Chloride 500 ml @ 999 mls/hr Q31M STAT IV 11/23/16 12:21 11/23/16 12:51 DC 11/23/16 12:21 999 MLS/HR Ondansetron HCl (Zofran Inj) 4 mg NOW STAT IV 11/23/16 12:21 11/23/16 12:22 DC 11/23/16 12:45 4 MG ECG Indication: back/shoulder pain Rate (beats per minute): 90 Rhythm: sinus rhythm Findings: nonspecific-ST abn (Lateral, inferior), other (Normal axis) Comparison ECG Date: 09 Apr 2016 Change: T-wave flattening in lateral lead is new. ED Course ED COURSE: Vital signs were reviewed and showed hypertension and tachycardia. The patients medical record was reviewed The above diagnostic studies were performed and reviewed. ED treatments and interventions as stated above. 1159: The patient was evaluated in room C11B. A complete history and physical examination was performed. 1221: Ordered Zofran Inj 4 mg IV, Sodium Chloride 500 ml @ 999 mls/hr IV 1308: The patient is well at this time. 1511: Upon reevaluation, the patient would like to go home. I discussed my findings with the patient and she understands and agrees with the treatment plan. The patient remained stable while under my care. The patient appeared well at the time of discharge. Medical Decision Differential diagnoses includes but is not limited to gastritis, peptic ulcer disease, GERD, gallbladder disease, pancreatitis, small bowel obstruction, acute coronary syndrome, pericarditis, ischemic bowel, irritable bowel disease, irritable bowel syndrome, appendicitis, diverticulitis, malignancy, hernia, urinary tract infection, torsion, /ectopic , perforation, trauma, infectious. Patient is a 51-year-old female that was referred in by her primary care doctor on Wednesday. At that time she was having periumbilical/epigastric abdominal pain and bilateral lower back pain. She EKG done and there is question of T- wave changes. She is referred in for further evaluation. She denies any chest pain or shortness of breath. No exertional symptoms. She has absolutely no abdominal pain today. She has minimal lower back pain on palpation. CBC along with BMP, LFTs, bilirubin and troponin were negative. EKG does not appear to be change from previous. With her negative troponin and absolutely no chest pain, shortness of breath/arm or jaw pain had a prolonged conversation with the patient. Since she was referred in her did offer her observation overnight but following discussion the patient notes that she would rather follow up as an outpatient. Risk and benefits were explained. UA was negative. CT of the abdomen and pelvis did show enteritis which I favors likely cause of her abdominal discomfort. I do favor the back pain is clearly musculoskeletal exam. Discussed with Pt concerning signs and symptoms to watch out for. Pt was instructed to follow up with their PCP and discussed with the patient their option to return to the ED at anytime for persistent or worsening symptoms. The appropriate anticipatory guidance and out-patient management, including indications for return to the emergency department, were explained at length to the patient and understood. Medication Reconcilliation Current Medication List: was personally reviewed by me Blood Pressure Screening Patient's blood pressure: Elevated blood pressure Blood pressure disposition: Referred to PCP Impression Primary Impression: Enteritis Additional Impressions: Abdominal pain Back pain Scribe Attestation The scribe's documentation has been prepared under my direction and personally reviewed by me in its entirety. I confirm that the note above accurately reflects all work, treatment, procedures, and medical decision making performed by me. Departure Information Dispostion Home / Self-Care Referrals Gildardo Olmos M.D. (PCP) Forms Call Back Authorization, HOME CARE DOCUMENTATION FORM, IMPORTANT VISIT INFORMATION Patient Instructions ED Gastroenteritis Non Infec, My [facility] Additional Instructions Please follow up with your primary care doctor or if you are a student, [facility] with in the next 24 hours. Any worsening of your symptoms, please return to the ED immediately. This includes any fevers greater than 100.4, worsening pain, chest pain, shortness breath, persistent nausea, vomiting, unable to eat or drink, or any other concerning signs or symptoms from your standpoint. Please take Motrin or Tylenol as needed for back pain. Problem Qualifiers Additional Impressions: Abdominal pain Abdominal location: unspecified location Qualified Codes: R10.9 - Unspecified abdominal pain Back pain Back pain location: low back pain Chronicity: acute Back pain laterality: bilateral Sciatica presence: without sciatica Qualified Codes: M54.5 - Low back pain
== END 2016-11-23 15:32 | disposition home or self-care (01) ==
LOC: C.EDB 11:30 → C.EDC 15:32
DX: K52.9 Noninfective gastroenteritis and colitis, unspecified (principal); R10.9 Unspecified abdominal pain; M54.5 Low back pain; G35 Multiple sclerosis; F95.2 Tourette's disorder; Z83.3 Family history of diabetes mellitus; Z82.49 Family history of ischemic heart disease and other diseases of the circulatory system; F17.210 Nicotine dependence, cigarettes, uncomplicated; Z79.899 Other long term (current) drug therapy

== ENCOUNTER 2017-01-13 23:36 | Emergency (ER) | payer OTHER ==
[~2017-01-13] VITALS: Ht 165.1 cm; Wt 69.8 kg
[~2017-01-13 23:36] MED LIST changes: -ONDA4TAB46 PO
[2017-01-13 23:39] VITALS: TEMP 36.9; Ht 165.1 cm; Wt 69.8 kg
[2017-01-14] MEDS ORDERED: ONDANSETRON INJ 2 MG/ML 2 ML VIAL IV STA ×2 (00:22→01:50)
--- NOTE | 2017-01-14 00:24 | EMERGENCY ROOM VISIT NOTE ---
History Report prepared by Jonatan: Jesse Casper Under the Supervision of: Dr. Vashti Belcher D.O. First contact with patient: 23:43 Chief Complaint: ABDOMINAL PAIN Stated Complaint: PAIN LWR RT SIDE OF ABDOMEN/BACK Nursing Triage Summary: c/o right lower abd pain that radiates into back and groin with nausea and diarrhea. denies urinary symptoms. reports history of MS. denies any other medical history. History of Present Illness The patient is a 51 year old female who presents to the Emergency Room with complaints of worsening constant right lower quadrant abdominal pain starting two days ago. The patient states that the pain started on and off with nausea, then she started having diarrhea, and it became constant. She denies any fever or vomiting. She states that she has been having some chills, and she has a gassy feeling in her stomach, though she has not been passing gas. The patient states that the pain is worse while lying on her right side and while walking, and the pain radiates into her back and down her left leg. The patient has a history of MS, hysterectomy, cholecystectomy, and a cystocele and rectocele repair. Source of History: patient Onset: two days ago Position: abdomen (RLQ) Timing: constant, worsening Modifying Factors (Worsening): other (walking and lying on the left side) Associated Symptoms: + chills, + nausea, + back pain, + diarrhea, No fevers , No vomiting Review of Systems See HPI for pertinent positives & negatives. A total of 10 systems reviewed and were otherwise negative. Past Medical & Surgical Medical Problems: (1) Trey de la Tourette's syndrome (2) Hypertension (3) Multiple sclerosis Surgical Problems: (1) History of cholecystectomy (2) S/P partial hysterectomy Family History Diabetes mellitus Hypertension Social History Smoking Status: Current Some Day Smoker Alcohol Use: none Drug Use: none Marital Status: Housing Status: lives with family Occupation Status: unemployed Current/Historical Medications Scheduled Estrogens, Conjugated (Premarin), 0.45 MG PO DAILY Interferon Beta-1B (Betaseron), 0.3 MG SC Q2D Lorazepam (Ativan), 1 MG PO HS Oxycodone Hcl (Oxycodone Hcl), 15 MG PO QID Scheduled PRN Ibuprofen (Ibuprofen), 800 MG PO Q4H PRN for Headache or Pain Allergies Coded Allergies: Sulfa Antibiotics (Verified Allergy, Severe, upset stomach and itching, ) Tramadol (Verified Allergy, Severe, hives, 01/14/17) Gabapentin (Verified Allergy, Intermediate, UNKNOWN, 01/14/17) Hydrocodone (Verified Allergy, Intermediate, vomiting and rash, 01/14/17) Ketorolac Tromethamine (Verified Allergy, Intermediate, rash, vomiting, ) Aspirin (Verified Allergy, Unknown, 01/14/17) Baclofen (Verified Allergy, Unknown, unknown, 01/14/17) Clonidine (Verified Allergy, Unknown, RASH,TACHYCARDIA, 01/14/17) Cyclobenzaprine (Verified Allergy, Unknown, HIVES, 01/14/17) Diclofenac (Verified Allergy, Unknown, 01/14/17) Doxycycline (Verified Allergy, Unknown, ITCH,N/V, 01/14/17) Penicillamine (Verified Allergy, Unknown, RASH, 01/14/17) Pregabalin (Verified Allergy, Unknown, HIVES, 01/14/17) Sulfa Drugs (Verified Allergy, Unknown, HIVES, 01/14/17) Penicillins (Verified Adverse Reaction, Intermediate, N/V, 01/14/17) Prednisone (Verified Adverse Reaction, Unknown, tachycardia, 01/14/17) Physical Exam Vital Signs Date Time Temp Pulse Resp B/P (MAP) Pulse Ox O2 Delivery O2 Flow Rate FiO2 01/14/17 03:13 153/78 01/14/17 01:48 88 20 153/78 97 Room Air 01/13/17 23:39 36.9 110 18 124/70 97 Room Air Physical Exam HEENT: Head - normocephalic and atraumatic Pupils are equal, round, and reactive to light. Extraocular eye muscles are intact, and sclera are anicteric. Nose - moist nasal mucosa without discharge. Mouth - moist buccal mucosa. Oropharynx is nonerythematous and there is no tonsillar exudate or edema noted. Neck: Supple; no JVD, nuchal rigidity, cervical lymphadenopathy. Heart: Regular rate and rhythm. There is a normal S1 and S2 with no murmurs, clicks, or gallops appreciated. Lungs: Clear to auscultation bilaterally with no wheezes, rales, or rhonchi. Abdomen: Moderate pain in the right lower quadrant over McBurney's point. Moderate pain with palpation in the right lower quadrant. Soft, nondistended, with good bowel sounds. There are no palpable pulsatile masses or hepatosplenomegaly. There is no guarding, rigidity, or rebound noted. Extremities: No evidence of cyanosis, clubbing, or edema. There are easily palpable peripheral pulses. Skin: warm and dry with good turgor and no rashes. Medical Decision & Procedures ER Provider Diagnostic Interpretation: Radiology results as stated below per my review and the radiologist's interpretation: CT ABDOMEN & PELVIS With contrast: Comparison 11/23. No evidence for appendicitis. No evidence for acute pancreatitis or other acute process. Diverticulosis without diverticulitis, cholecystectomy and other unchanged findings. Radiologist: Gavino Chauhan MD Laboratory Results 01/14/17 00:25 Red Blood Count 4.06, Mean Corpuscular Volume 87.2, Mean Corpuscular Hemoglobin 30.3, Mean Corpuscular Hemoglobin Concent 34.7, Mean Platelet Volume 10.1, Neutrophils (%) (Auto) 46.5, Lymphocytes (%) (Auto) 44.7, Monocytes (%) (Auto) 6.1, Eosinophils (%) (Auto) 2.1, Basophils (%) (Auto) 0.4, Neutrophils # (Auto) 4.24, Lymphocytes # (Auto) 4.09, Monocytes # (Auto) 0.56, Eosinophils # (Auto) 0.19, Basophils # (Auto) 0.04 01/14/17 00:25 Test 01/13/17 23:55 01/14/17 00:25 Urine Color DK YELLOW Urine Appearance CLEAR (CLEAR) Urine pH 6.0 (4.5-7.5) Urine Specific [place] 1.028 (1.000-1.030) Urine Protein NEG (NEG) Urine Glucose (UA) NEG (NEG) Urine Ketones TRACE (NEG) Urine Occult Blood NEG (NEG) Urine Nitrite NEG (NEG) Urine Bilirubin NEG (NEG) Urine Urobilinogen NEG (NEG) Urine Leukocyte Esterase NEG (NEG) White Blood Count 9.14 K/uL (4.8-10.8) Red Blood Count 4.06 M/uL (4.2-5.4) Hemoglobin 12.3 g/dL (12.0-16.0) Hematocrit 35.4 % (37-47) Mean Corpuscular Volume 87.2 fL (80-100) Mean Corpuscular Hemoglobin 30.3 pg (25-34) Mean Corpuscular Hemoglobin Concent 34.7 g/dl (32-36) Platelet Count 323 K/uL (130-400) Mean Platelet Volume 10.1 fL (7.4-10.4) Neutrophils (%) (Auto) 46.5 % Lymphocytes (%) (Auto) 44.7 % Monocytes (%) (Auto) 6.1 % Eosinophils (%) (Auto) 2.1 % Basophils (%) (Auto) 0.4 % Neutrophils # (Auto) 4.24 K/uL (1.4-6.5) Lymphocytes # (Auto) 4.09 K/uL (1.2-3.4) Monocytes # (Auto) 0.56 K/uL (0.11-0.59) Eosinophils # (Auto) 0.19 K/uL (0-0.5) Basophils # (Auto) 0.04 K/uL (0-0.2) RDW Standard Deviation 41.1 fL (36.4-46.3) RDW Coefficient of Variation 12.8 % (11.5-14.5) Immature Granulocyte % (Auto) 0.2 % Immature Granulocyte # (Auto) 0.02 K/uL (0.00-0.02) Anion Gap 9.0 mmol/L (3-11) Est Creatinine Clear Calc Drug Dose 82.9 ml/min Estimated GFR () 102.2 Estimated GFR (Non- 88.2 BUN/Creatinine Ratio 22.9 (10-20) Calcium Level 8.6 mg/dl (8.5-10.1) Total Bilirubin 0.2 mg/dl (0.2-1) Direct Bilirubin < 0.1 mg/dl (0-0.2) Aspartate Amino Transf (AST/SGOT) 16 U/L (15-37) Alanine Aminotransferase (ALT/SGPT) 19 U/L (12-78) Alkaline Phosphatase 89 U/L (45-117) Total Protein 7.0 gm/dl (6.4-8.2) Albumin 3.2 gm/dl (3.4-5.0) Lipase 105 U/L (73-393) Laboratory results per my review. Medications Administered Medications (Trade) Dose Ordered Sig/Ran Route Start Time Stop Time Status Last Admin Dose Admin Ondansetron HCl (Zofran Inj) 4 mg NOW STAT IV 01/14/17 00:22 01/14/17 00:23 DC 01/14/17 00:39 4 MG Hydromorphone HCl (Dilaudid Inj) 1 mg NOW STAT IV 01/14/17 01:50 01/14/17 01:51 DC 01/14/17 01:57 1 MG Ondansetron HCl (Zofran Inj) 4 mg NOW STAT IV 01/14/17 01:50 01/14/17 01:51 DC 01/14/17 01:57 4 MG Procedure Zofran IV, Dilaudid IV ED Course 2346: The patient was evaluated by the medical student 0019: Past medical records reviewed. The patient was evaluated in room B8. A complete history and physical exam was performed. An IV lock was initiated and labs were drawn as above. 0022: Zofran Inj 4mg IV. The patient went for CT scan of the abdomen/pelvis to rule out appendicitis. 0150: Zofran Inj, Dilaudid Inj 1mg IV 0248: I reevaluated the patient, and she had some relief of her pain. She now believes that the pain is lower, and on examination the pain was lower. I was going to order an US on the patient, however she declined because her visitor has to leave, so she fill follow up with her motor vehicle field representative in the morning. The patient will be discharged home. Medical Decision The patient is a 51 year old female who presents to the ED with right lower quadrant abdominal pain. Differential diagnosis includes small bowel obstruction , pyelonephritis, ureteral colic, appendicitis, and diverticulitis. Lab results show: No leukocytosis, stable H&H, glucose of 127, normal LFTs and lipase, normal renal function, and trace ketones in urine. This is a 51-year- old female patient presents to emergency department with significant right lower quadrant abdominal pain with palpation. CT scan of the abdomen/pelvis shows no evidence of appendicitis. There is no evidence of diverticulitis. The patient seems to believe that the pain is somewhat lower on the right side and may be more ovarian in origin. I recommended that we obtain an ultrasound of the pelvis to further evaluate the right ovary but the patient declined stating that she would follow up with her motor vehicle field representative. Medication Reconcilliation Current Medication List: was personally reviewed by me Blood Pressure Screening Patient's blood pressure: Elevated blood pressure Blood pressure disposition: Elevated BP felt to be situational Impression Primary Impression: Right lower quadrant abdominal pain Scribe Attestation The scribe's documentation has been prepared under my direction and personally reviewed by me in its entirety. I confirm that the note above accurately reflects all work, treatment, procedures, and medical decision making performed by me. Departure Information Dispostion Home / Self-Care Referrals Gildardo Olmos M.D. (PCP) Forms Call Back Authorization, HOME CARE DOCUMENTATION FORM, IMPORTANT VISIT INFORMATION Patient Instructions My [facility] Additional Instructions Rest. Limit strenuous activity. Take a bland diet. Follow up later today with strickler attendant for eval of right ovary. Return to the ER for worsening symptoms
[2017-01-14] MEDS ORDERED: OPTIRAY 320 IV PRN (00:30)
[2017-01-14 00:31] LABS: URINE APPEARANCE CLEAR (CLEAR); URINE BILIRUBIN NEG (NEG); URINE COLOR DK YELLOW; URINE NITRITE NEG (NEG); URINE SPECIFIC GRAVITY 1.028 (1.000-1.030); UROBILINOGEN NEG (NEG)
[2017-01-14 00:38] LABS: MANUAL MICROSCOPIC REQUIRED? NO; REVIEW REQ? NO
[2017-01-14 00:53] LABS: BASO % 0.4 %; BASO ABS # 0.04 K/uL (0-0.2); COMPLETE YES; EOS % 2.1 %; HEMATOCRIT 35.4 % (37-47); IG% 0.2 %; LYMPH % 44.7 %; LYMPH ABS # 4.09 K/uL (1.2-3.4); MEAN CELL VOLUME 87.2 fL (80-100); MEAN CORPUSCULAR HEMOGLOBIN 30.3 pg (25-34); MEAN CORPUSCULAR HGB CONC 34.7 g/dl (32-36); MEAN PLATELET VOLUME 10.1 fL (7.4-10.4); MONO % 6.1 %; NEUT % 46.5 %; PLATELET COUNT 323 K/uL (130-400); RED BLOOD COUNT 4.06 M/uL (4.2-5.4); WHITE BLOOD COUNT 9.14 K/uL (4.8-10.8)
[2017-01-14 01:16] LABS: ALT/SGPT 19 U/L (12-78); AST/SGOT 16 U/L (15-37); BLOOD UREA NITROGEN 18 mg/dl (7-18); BUN/CREATININE RATIO 22.9 (10-20); CALCIUM 8.6 mg/dl (8.5-10.1); CARBON DIOXIDE 26 mmol/L (21-32); CHLORIDE 108 mmol/L (98-107); CREATININE 0.77 mg/dl (0.60-1.20); GLUCOSE 127 mg/dl (70-99); POTASSIUM 3.8 mmol/L (3.5-5.1); SODIUM 143 mmol/L (136-145)
[2017-01-14 01:19] LABS: ALKALINE PHOSPHATASE 89 U/L (45-117)
[2017-01-14 01:48] VITALS: PULSE 88; O2SAT 97
[2017-01-14] MEDS ORDERED: HYDROmorphone INJ 1 MG/ML SYR IV STA (01:50)
[2017-01-14 03:13] VITALS: BP 153/78
--- NOTE | 2017-01-14 07:46 | DIAGNOSTIC IMAGING REPORT ---
ABD/PELVIS IV CONTRAST ONLY CLINICAL HISTORY: 51 years-old Female presenting with eval for appy. TECHNIQUE: Multidetector CT of the abdomen and pelvis was performed after the administration of intravenous contrast. IV contrast: 93 mL of Optiray 320. A dose lowering technique was used consistent with the principles of ALARA (as low as reasonably achievable). COMPARISON: 11/23/2016. CT DOSE (mGy.cm): The estimated cumulative dose is 397.98 mGy.cm. FINDINGS: Checker And Packer topogram: Cholecystectomy clips. Lung bases: Minimal dependent changes likely atelectasis. Normal heart size. No pericardial or pleural effusion. Liver: Normal morphology. No liver lesion. Patent hepatic vasculature. Biliary: Mild central intrahepatic biliary ductal dilatation and slight prominence of the common duct, likely a reservoir effect in the post cholecystectomy state. Gallbladder surgically absent. Pancreas: Pancreas divisum. Mild prominence of the pancreatic duct at the level of the pancreatic head and neck. Spleen: Normal. Adrenal glands: Normal. Kidneys and ureters: Well-defined hypoenhancing lesion in the posterior interpolar region of the right kidney with elevated density. This measures 8 mm. This is indeterminate. No hydronephrosis. No nephrolithiasis. Ureters grossly normal, although somewhat difficult to visualize of the distal portion. Bladder: Incompletely evaluated secondary to underdistention. Pelvic organs: Uterus surgically absent. No adnexal masses. Normal left ovary. Right ovary likely also present but not as well visualized. Bowel: Limited diverticulosis of the descending and sigmoid colon. Few additional scattered diverticula noted in the colon. Normal appendix. No bowel obstruction. Peritoneal cavity: No free fluid or intraperitoneal gas. No inflammatory changes evident. Lymph nodes: No enlarged lymph nodes in the abdomen or pelvis. Vasculature: Aorta and IVC patent and normal in caliber. Abdominal wall: Normal. Musculoskeletal: Normal. IMPRESSION: 1. No acute intra-abdominal pathology. No appendicitis. 2. Indeterminate subcentimeter lesion in the right kidney. This could represent a hemorrhagic or proteinaceous cyst, although an enhancing lesion cannot be excluded. If there is clinical concern, contrast-enhanced MR is recommended. 3. Diverticulosis. No evidence of diverticulitis. 4. Pancreas divisum. No evidence of pancreatitis. Electronically signed by: Manish Sumner M.D. 01/14/2017 7:44 AM Dictated Date/Time: 01/14/2017 7:26 AM
== END 2017-01-14 03:13 | disposition home or self-care (01) ==
LOC: C.EDB 23:37
DX: R10.31 Right lower quadrant pain (principal); G35 Multiple sclerosis; I10 Essential (primary) hypertension; F95.2 Tourette's disorder; Z83.3 Family history of diabetes mellitus; Z82.49 Family history of ischemic heart disease and other diseases of the circulatory system; F17.210 Nicotine dependence, cigarettes, uncomplicated; Z79.899 Other long term (current) drug therapy

== ENCOUNTER → 2017-03-25 | Outpatient (CLI) | payer OTHER ==
[2017-03-25 17:24] LABS: MEAN CORPUSCULAR HEMOGLOBIN 29.7 pg (25-34); MEAN CORPUSCULAR HGB CONC 33.3 g/dl (32-36); MEAN PLATELET VOLUME 10.5 fL (7.4-10.4); PLATELET COUNT 311 K/uL (130-400); RED BLOOD COUNT 4.38 M/uL (4.2-5.4); WHITE BLOOD COUNT 5.63 K/uL (4.8-10.8)
[2017-03-25 17:33] LABS: ALT/SGPT 16 U/L (12-78); AST/SGOT 12 U/L (15-37); BLOOD UREA NITROGEN 18 mg/dl (7-18); BUN/CREATININE RATIO 25.2 (10-20); CARBON DIOXIDE 29 mmol/L (21-32); CHLORIDE 103 mmol/L (98-107); CREATININE 0.73 mg/dl (0.60-1.20); GLUCOSE 114 mg/dl (70-99); POTASSIUM 4.2 mmol/L (3.5-5.1); SODIUM 138 mmol/L (136-145)
[2017-03-25 17:44] LABS: ALB/GLOB RATIO 0.8 (0.9-2); ALKALINE PHOSPHATASE 85 U/L (45-117); THYROID STIMULATING HORMONE 0.628 uIu/ml (0.300-4.500)
[2017-03-25 17:51] LABS: BASO % 0.5 %; BASO ABS # 0.03 K/uL (0-0.2); COMPLETE YES; EOS % 2.8 %; IG% 0.2 %; LARGE PLATELETS 1+; LYMPH % 57.4 %; LYMPH ABS # 3.23 K/uL (1.2-3.4); MONO % 9.1 %
== END | disposition home or self-care (01) ==
LOC: C.LABBFT 13:08
PROVIDERS: ATTEND Psychiatry & Neurology Neurology
DX: G35 Multiple sclerosis (principal)

== ENCOUNTER → 2017-08-04 | Outpatient (CLI) | payer OTHER ==
[~2017-08-04] MED LIST changes: -INTE0.3I2 SC; +[UNRECOGNIZED DRUG - CODE] SC
== END | disposition home or self-care (01) ==
LOC: C.LABBFT 10:54
PROVIDERS: ATTEND Psychiatry & Neurology Neurology
DX: E55.9 Vitamin D deficiency, unspecified (principal)